=== PATIENT | male | born 1955 | race Caucasian/White ===

== ENCOUNTER 2016-11-01 15:14 | Emergency (ER) | payer BC ==
[2016-11-01 15:44] VITALS: BP 139/94
--- NOTE | 2016-11-01 16:21 | EDM.PDOC ---
ED HPI GENERAL MEDICAL PROBLEM - General Chief Complaint: Chest Pain Stated Complaint: ELEVATED BLOOD PRESSURE Time Seen by Provider: 11/01/16 15:22 Source of Information: Reports: Patient History Limitations: Reports: No Limitations - History of Present Illness INITIAL COMMENTS - FREE TEXT/NARRATIVE: Pateint C/O of midsternal cp with activity for the last 3 days Onset: Gradual Duration: Day(s): Location: Reports: Chest Quality: Reports: Pressure Severity: Moderate Worsens with: Reports: Movement Chest Pain Score (Numeric/FACES): 2 - Related Data Allergies Allergy/AdvReac Type Severity Reaction Status Date / Time No Known Allergies Allergy Verified 11/01/16 15:57 Home Meds: Home Meds Clopidogrel Bisulfate [Clopidogrel] 75 mg PO DAILY 11/13/13 [History] Cyanocobalamin (Vitamin B-12) [B-12] 1,000 mcg PO DAILY 11/13/13 [History] Cyanocobalamin (Vitamin B12) [Vitamin B12] 1,000 mcg IJ Q30D 11/13/13 [History] Losartan [Cozaar] 50 mg PO DAILY 11/13/13 [History] Medication For Ulcerative Colitis 3 tab PO BID 11/13/13 [History] Multivitamin [Daily Vitamin] 1 each PO DAILY 11/13/13 [History] Nitroglycerin [Nitrostat] 0.4 mg SL DAILY PRN 11/13/13 [History] Simvastatin [Simvastatin] 10 mg PO DAILY 11/13/13 [History] Zolpidem [Ambien] 10 mg PO BEDTIME PRN 11/13/13 [History] amLODIPine Besylate [Amlodipine Besylate] 10 mg PO DAILY 11/13/13 [History] Omeprazole 20 mg PO DAILY 10/17/15 [History] Aspirin [Halfprin] 81 mg PO DAILY 10/22/15 [History] Chromium Picolinate 200 mcg PO DAILY 10/22/15 [History] Folic Acid 1 mg PO DAILY 10/22/15 [History] Lisinopril [Lisinopril] 10 mg PO DAILY 10/22/15 [History] Zinc 50 mg PO DAILY 10/22/15 [History] Past Medical History Cardiovascular History: Reports: Blood Clots/VTE/DVT, High Cholesterol, Hypertension, Stents Gastrointestinal History: Reports: GERD Oncologic (Cancer) History: Reports: Prostate - Past Surgical History Cardiovascular Surgical History: Reports: Other (See Below) Other Cardiovascular Surgeries/Procedures: 2 stents GI Surgical History: Reports: Appendectomy, Bariatric Procedure, Cholecystectomy Social & Family History - Tobacco Use Smoking Status *Q: Never Smoker - Caffeine Use Caffeine Use: Reports: None - Recreational Drug Use Recreational Drug Use: No - Living Situation & Occupation Living situation: Reports: Single ED ROS GENERAL - Review of Systems Review Of Systems: ROS reveals no pertinent complaints other than HPI. ED EXAM, GENERAL - Physical Exam Exam: See Below Free Text/Narrative:: healthy appearing 60 yo male, skin W&D BBS clear, heart tones normal. Exam Limited By: Altered Mental Status General Appearance: Alert, WD/WN Nose: Normal Inspection Throat/Mouth: Normal Inspection Head: Atraumatic Neck: Normal Inspection Respiratory/Chest: No Respiratory Distress, Lungs Clear, Normal Breath Sounds Cardiovascular: Normal Peripheral Pulses, Regular Rate, Rhythm, No Edema (Male) Exam: No Hernia Back Exam: Normal Inspection Extremities: Normal Inspection Neurological: Alert, Oriented Psychiatric: Normal Affect Skin Exam: Warm, Dry, Intact Course - Vital Signs Last Recorded V/S: Last Vital Signs Temp 99.2 F 11/01/16 15:33 Pulse 65 11/01/16 15:43 Resp 17 11/01/16 15:43 BP 139/94 H 11/01/16 15:43 Pulse Ox 95 11/01/16 15:43 - Orders/Labs/Meds Orders: Active Orders 24 hr Category Date Time Status Chest 2V [CR] Stat Exams 11/01/16 15:42 Taken Labs: Laboratory Tests 11/01/16 11/01/16 11/01/16 Range/Units 15:33 15:33 15:33 WBC 9.2 (5.0-10.0) 10^3/uL RBC 4.14 L (4.50-6.00) 10^6/uL Hgb 13.4 L (14.0-18.0) g/dL Hct 42.0 (40.0-54.0) % MCV 101.4 H (82.0-94.0) fL MCH 32.4 H (27.0-32.0) pg MCHC 31.9 L (33.0-38.0) g/dL RDW Coeff of Carole 13.3 (11.0-15.0) % Plt Count 246 (150-400) 10^3/uL Neut % (Auto) 60.4 (35-85) % Lymph % (Auto) 27.3 (10-55) % [place] % (Auto) 10.9 (0-16) % Eos % (Auto) 1.1 (0-5) % Baso % (Auto) 0.3 (0-3) % Neut # (Auto) 5.57 (1.80-7.00) 10^3/uL Lymph # (Auto) 2.52 (1.00-4.80) 10^3/uL [place] # (Auto) 1.01 H (0.00-0.80) 10^3/uL Eos # (Auto) 0.10 (0.00-0.45) 10^3/uL Baso # (Auto) 0.03 10^3/uL PT 11.5 (9.7-12.3) SEC INR 1.06 (0.92-1.18) APTT 26.6 (24.5-30.9) SEC Sodium 139 (136-145) mEq/L Potassium 4.7 (3.5-5.0) mEq/L Chloride 104 (98-106) mEq/L Carbon Dioxide 28 (21-32) mmol/L BUN 23 H (7-18) mg/dL Creatinine 1.6 H (0.7-1.3) mg/dL Est Cr Clr Drug Dosing 48.48 mL/min Estimated GFR (MDRD) 44 L (>=60) mL/min Glucose 104 H (75-99) mg/dL Calcium 8.7 (8.4-10.1) mg/dL Lactate Dehydrogenase 209 H (100-190) U/L Creatine Kinase 297 H (35-232) U/L Troponin I 0.019 (0.00-0.06) ng/mL Departure - Departure Time of Disposition: 16:19 (Will set up for cardiac stress test.) Disposition: Home, Self-Care 01 Condition: Good Clinical Impression: Stable angina Instructions: Angina Pectoris, [id number] Forms: ED Department Discharge Additional Instructions: Follow up with your regular doctor and your spiral gear generator for cardiac stress test. - My Orders Last 24 Hours: My Active Orders 11/01/16 15:42 Chest 2V [CR] Stat - Assessment/Plan Last 24 Hours: My Active Orders 11/01/16 15:42 Chest 2V [CR] Stat
== END 2016-11-01 16:23 | disposition home or self-care (01) ==
LOC: CC.ED 15:14
DX: I20.9 Angina pectoris, unspecified (principal); K21.9 Gastro-esophageal reflux disease without esophagitis; E78.00 Pure hypercholesterolemia, unspecified; I10 Essential (primary) hypertension; Z98.84 Bariatric surgery status; Z79.899 Other long term (current) drug therapy; Z79.82 Long term (current) use of aspirin; Z90.49 Acquired absence of other specified parts of digestive tract; Z86.718 Personal history of other venous thrombosis and embolism
CPT/HCPCS: 36415; 71020; 80048; 82550; 83615; 84484; 85025; 85610; 85730; 93005; 99285

== ENCOUNTER 2021-11-28 06:33 | Emergency (ER) | payer MEDICARE, BC ==
[2021-11-28 06:36] VITALS: BP 168/104; PULSE 60
[2021-11-28] MEDS: Ketorolac 30 MG/ML SDV IM ONE (07:14)
== END 2021-11-28 07:45 | disposition home or self-care (01) ==
LOC: CC.ED 06:33
DX: M54.16 Radiculopathy, lumbar region (principal); K21.9 Gastro-esophageal reflux disease without esophagitis; E78.00 Pure hypercholesterolemia, unspecified; I10 Essential (primary) hypertension; I25.2 Old myocardial infarction; Z95.5 Presence of coronary angioplasty implant and graft; Z79.02 Long term (current) use of antithrombotics/antiplatelets; Z79.82 Long term (current) use of aspirin; Z79.899 Other long term (current) drug therapy
CPT/HCPCS: 96372; 99283; J1885

== ENCOUNTER 2021-11-29 10:29 | Emergency (ER) | payer MEDICARE, BC ==
[2021-11-29] MEDS: HYDROmorphone 1 MG/ML Syringe SUBCUT ONE (11:33)
[2021-11-29 12:00] LABS: CHLORIDE,CL 100 mEq/L (98-106); ESTIMATED GFR 61 mL/min (>=60); SODIUM,NA 138 mEq/L (136-145)
[2021-11-29 12:42] VITALS: BP 154/93; PULSE 66
[2021-11-29] MEDS: Take Home: Acetaminophen/oxyCODONE 325-5 MG, 2 Tab Pack PO ONE (13:14)
== END 2021-11-29 13:39 | disposition home or self-care (01) ==
LOC: CC.ED 10:29
DX: M54.16 Radiculopathy, lumbar region (principal); E78.00 Pure hypercholesterolemia, unspecified; I10 Essential (primary) hypertension; I25.2 Old myocardial infarction; K21.9 Gastro-esophageal reflux disease without esophagitis; Z95.5 Presence of coronary angioplasty implant and graft; Z79.02 Long term (current) use of antithrombotics/antiplatelets; Z79.82 Long term (current) use of aspirin; Z79.899 Other long term (current) drug therapy
CPT/HCPCS: 36415; 80053; 81001; 85025; 86140; 96372; 99283; 99284; A9270-GY; J1170

== ENCOUNTER 2023-03-03 09:21 | Emergency (ER) | payer MEDICARE, BC ==
[2023-03-03 09:46] LABS: BASOPHILS ABSOLUTE AUTO 0.03 10^3/uL (0.00-0.50); BASOPHILS PERCENT AUTO 0.4 % (0-1); EOSINOPHILS PERCENT AUTO 1.2 % (0-6); HEMATOCRIT 47.6 % (42.0-52.0); IMMATURE GRAN ABSOLUTE AUTO 0.03 10^3/uL (0.00-0.49); IMMATURE GRAN PERCENT AUTO 0.4 % (0.0-4.9); LYMPHOCYTES ABSOLUTE AUTO 1.71 10^3/uL (0.60-5.00); LYMPHOCYTES PERCENT AUTO 20.8 % (24-44); MEAN CORPUSCULAR HEMOGLOBIN 36.9 pg (27.0-32.0); MEAN CORPUSCULAR HGB CONC 33.6 g/dL (32.0-36.0); MEAN CORPUSCULAR VOLUME 109.7 fL (83.0-97.0); MONOCYTES ABSOLUTE AUTO 1.18 10^3/uL (0.00-1.50); MONOCYTES PERCENT AUTO 14.4 % (0-10); NEUTROPHILS ABSOLUTE AUTO 5.17 x10^3/uL (1.80-8.00); NEUTROPHILS PERCENT AUTO 62.8 % (41-71); PLATELET COUNT,PLT 181 10^3/uL (150-400); RED BLOOD CELL COUNT 4.34 x10^6/uL (4.50-6.00); WHITE BLOOD CELL COUNT,WBC 8.2 10^3/uL (4.0-11.0)
[2023-03-03 10:06] LABS: ALBUMIN 3.8 g/dL (3.4-5.0); BILIRUBIN TOTAL 0.6 mg/dL (0.0-1.0); C-REACTIVE PROTEIN 1.51 mg/dL (<=0.30); CALCIUM 9.4 mg/dL (8.4-10.1); CREATININE 1.7 mg/dL (0.7-1.3); EST CRCL DRUG DOSING (CG) 41.59 mL/min; MAGNESIUM 2.1 mg/dL (1.8-2.4); POTASSIUM,K 3.7 mEq/L (3.5-5.0); PROTEIN TOTAL,TP 7.2 g/dL (6.4-8.2)
[2023-03-03 10:17] VITALS: BP 125/75; PULSE 85
== END 2023-03-03 12:10 | disposition home or self-care (01) ==
LOC: CC.ED 09:21
DX: R42 Dizziness and giddiness (principal); I49.8 Other specified cardiac arrhythmias; B20 Human immunodeficiency virus [HIV] disease; E78.00 Pure hypercholesterolemia, unspecified; I10 Essential (primary) hypertension; I25.2 Old myocardial infarction; Z95.5 Presence of coronary angioplasty implant and graft; Z79.899 Other long term (current) drug therapy
CPT/HCPCS: 36415; 71045; 80053; 83735; 83880; 84484; 85025; 85379; 86140; 93005; 93010; 99284

== ENCOUNTER 2024-03-31 14:51 | Observation (INO) | payer MEDICARE, BC ==
[2024-03-31 15:29] LABS: BASOPHILS ABSOLUTE AUTO 0.04 10^3/uL (0.00-0.50); BASOPHILS PERCENT AUTO 0.3 % (0-1); EOSINOPHILS ABSOLUTE AUTO 0.06 10^3/uL (0.00-1.50); EOSINOPHILS PERCENT AUTO 0.5 % (0-6); HEMATOCRIT 35.4 % (42.0-52.0); HEMOGLOBIN 11.4 g/dL (14.0-18.0); IMMATURE GRAN ABSOLUTE AUTO 0.09 10^3/uL (0.00-0.49); IMMATURE GRAN PERCENT AUTO 0.8 % (0.0-4.9); LYMPHOCYTES ABSOLUTE AUTO 1.53 10^3/uL (0.60-5.00); LYMPHOCYTES PERCENT AUTO 13.4 % (24-44); MEAN CORPUSCULAR HGB CONC 32.2 g/dL (32.0-36.0); MEAN CORPUSCULAR VOLUME 105.7 fL (83.0-97.0); MONOCYTES PERCENT AUTO 8.7 % (0-10); NEUTROPHILS ABSOLUTE AUTO 8.71 x10^3/uL (1.80-8.00); NEUTROPHILS PERCENT AUTO 76.3 % (41-71); PLATELET COUNT,PLT 356 10^3/uL (150-400); RED BLOOD CELL COUNT 3.35 x10^6/uL (4.50-6.00); WHITE BLOOD CELL COUNT,WBC 11.4 10^3/uL (4.0-11.0)
[2024-03-31] MEDS: Ondansetron 4 MG Tab.DIS PO ONE (15:30)
[2024-03-31 15:31] LABS: APPEARANCE,URINE CLEAR (CLEAR); BILIRUBIN,URINE NEGATIVE (NEGATIVE); COLOR,URINE YELLOW (YELLOW); GLUCOSE,URINE 500 mg/dL (NEGATIVE); KETONES,URINE NEGATIVE (NEGATIVE); LEUKOCYTE ESTERASE,URINE NEGATIVE (NEGATIVE); NITRITE,URINE NEGATIVE (NEGATIVE); PH,URINE 5.5 (4.5-8.0); PROTEIN,URINE NEGATIVE (NEGATIVE); UROBILINOGEN,URINE 0.2 EU/dL (0.2-1.0)
[2024-03-31 15:36] LABS: OCCULT BLOOD,URINE NEGATIVE (NEGATIVE)
[2024-03-31 15:42] LABS: BILIRUBIN TOTAL 0.4 mg/dL (0.0-1.0); C-REACTIVE PROTEIN 0.82 mg/dL (<=0.50); CALCIUM 9.4 mg/dL (8.4-10.1); CREATININE 2.4 mg/dL (0.7-1.3); EST CRCL DRUG DOSING (CG) 29.05 mL/min; POTASSIUM,K 5.8 mEq/L (3.5-5.0); PROTEIN TOTAL,TP 7.3 g/dL (6.4-8.2)
[2024-03-31] MEDS ORDERED: Nitroglycerin 0.4 MG Tab.SL SL PRN (16:27)
[2024-03-31] MEDS ORDERED: Ondansetron 4 MG/2 ML SDV IV PRN (16:27)
[2024-03-31] MEDS ORDERED: Ondansetron 4 MG Tab.DIS PO PRN (16:27)
[2024-03-31] MEDS ORDERED: Sodium Chloride 0.9% 10 ML Syringe FLUSH PRN (16:27)
[2024-03-31] MEDS: Sodium Chloride 0.9% 1,000 ML IV ONE (16:32)
[2024-03-31] MEDS: Acetaminophen 325 MG Tab PO PRN (17:18)
[2024-03-31] MEDS: cefTRIAXone 1 GM Vial IVPUSH SCH (17:18)
[2024-03-31] MEDS: Sodium Chloride 0.9% 1,000 ML IV SCH (17:41)
[2024-03-31] MEDS: Zolpidem 5 MG Tab PO SCH (19:33)
[2024-03-31] MEDS: Metoprolol Succinate 25 MG Tab.ER PO SCH (19:33)
[2024-03-31] MEDS: Apixaban 5 MG Tab PO SCH (19:33)
[2024-03-31] MEDS: sulfaSALAzine 500 MG Tab PO SCH (19:33)
[2024-03-31] MEDS: Lactobacillus Rhamnosus GG (Probiotic) Cap PO SCH (19:33)
[2024-04-01 07:25] VITALS: BP 139/79; PULSE 62
[2024-04-01] MEDS: Isosorbide Mononitrate 30 MG Tab.ER PO SCH (07:29)
[2024-04-01] MEDS: amLODIPine 10 MG Tab PO SCH (07:29)
[2024-04-01] MEDS: Magnesium Oxide 400 MG Tab PO SCH (07:29)
[2024-04-01] MEDS: Furosemide 20 MG Tab PO SCH (07:30)
[2024-04-01] MEDS: Clopidogrel 75 MG Tab PO SCH (07:30)
[2024-04-01] MEDS: Rosuvastatin 10 MG Tab PO SCH (07:30)
[2024-04-01] MEDS: Aspirin 81 MG Tab.EC PO SCH (07:30)
[2024-04-01] MEDS: Amiodarone 200 MG Tab PO SCH (07:30)
[2024-04-01 07:34] LABS: ALBUMIN 3.2 g/dL (3.4-5.0); BILIRUBIN TOTAL 0.3 mg/dL (0.0-1.0); C-REACTIVE PROTEIN 0.59 mg/dL (<=0.50); CALCIUM 8.6 mg/dL (8.4-10.1); CREATININE 1.9 mg/dL (0.7-1.3); EST CRCL DRUG DOSING (CG) 36.69 mL/min; POTASSIUM,K 5.1 mEq/L (3.5-5.0); PROTEIN TOTAL,TP 6.2 g/dL (6.4-8.2)
[2024-04-01 07:37] LABS: BASOPHILS ABSOLUTE AUTO 0.04 10^3/uL (0.00-0.50); BASOPHILS PERCENT AUTO 0.5 % (0-1); EOSINOPHILS PERCENT AUTO 2.5 % (0-6); HEMATOCRIT 32.9 % (42.0-52.0); HEMOGLOBIN 10.4 g/dL (14.0-18.0); IMMATURE GRAN ABSOLUTE AUTO 0.07 10^3/uL (0.00-0.49); IMMATURE GRAN PERCENT AUTO 0.9 % (0.0-4.9); LYMPHOCYTES ABSOLUTE AUTO 1.88 10^3/uL (0.60-5.00); LYMPHOCYTES PERCENT AUTO 23.9 % (24-44); MEAN CORPUSCULAR HEMOGLOBIN 34.1 pg (27.0-32.0); MEAN CORPUSCULAR HGB CONC 31.6 g/dL (32.0-36.0); MEAN CORPUSCULAR VOLUME 107.9 fL (83.0-97.0); MONOCYTES ABSOLUTE AUTO 0.72 10^3/uL (0.00-1.50); MONOCYTES PERCENT AUTO 9.2 % (0-10); NEUTROPHILS ABSOLUTE AUTO 4.95 x10^3/uL (1.80-8.00); PLATELET COUNT,PLT 327 10^3/uL (150-400); RED BLOOD CELL COUNT 3.05 x10^6/uL (4.50-6.00); WHITE BLOOD CELL COUNT,WBC 7.9 10^3/uL (4.0-11.0)
[2024-04-01] MEDS ORDERED: Non-Formulary Medication 1 Each (Ubidecarenone [Co Q-10] 100 MG Capsule) PO SCH (08:00)
[2024-04-01] MEDS ORDERED: DAPAGLIFLOZIN PROPANEDIOL 5 MG PO SCH (08:00)
[2024-04-01] MEDS: Take Home: Ondansetron 4 MG Tab.DIS, 2 Tab Pack PO ONE (10:58)
== END 2024-04-01 11:15 | disposition home or self-care (01) ==
LOC: CC.ED 14:51 → CC.MS 15:55 → CC.ED 15:55 → UNDOADMOB 15:55 → CC.MS 16:12 → UNDODISOB 04-01 11:15
PROVIDERS: ADMIT Physician Assistant Medical; ATTEND Physician Assistant Medical
DX: N17.9 Acute kidney failure, unspecified (principal); E87.5 Hyperkalemia; R11.0 Nausea; Z79.899 Other long term (current) drug therapy; Z79.82 Long term (current) use of aspirin; Z79.01 Long term (current) use of anticoagulants
CPT/HCPCS: 36415; 80053; 81003; 85025; 86140; 99223; 99239; 99284; A9270-GY; J0696; J7030

== ENCOUNTER 2024-04-10 18:10 | Emergency (ER) | payer MEDICARE, BC ==
[2024-04-10 18:58] LABS: BASOPHILS ABSOLUTE AUTO 0.07 10^3/uL (0.00-0.50); BASOPHILS PERCENT AUTO 0.8 % (0-1); EOSINOPHILS ABSOLUTE AUTO 0.21 10^3/uL (0.00-1.50); EOSINOPHILS PERCENT AUTO 2.3 % (0-6); HEMATOCRIT 33.8 % (42.0-52.0); HEMOGLOBIN 10.7 g/dL (14.0-18.0); IMMATURE GRAN ABSOLUTE AUTO 0.09 10^3/uL (0.00-0.49); LYMPHOCYTES ABSOLUTE AUTO 2.32 10^3/uL (0.60-5.00); LYMPHOCYTES PERCENT AUTO 25.8 % (24-44); MEAN CORPUSCULAR HEMOGLOBIN 33.4 pg (27.0-32.0); MEAN CORPUSCULAR HGB CONC 31.7 g/dL (32.0-36.0); MEAN CORPUSCULAR VOLUME 105.6 fL (83.0-97.0); MONOCYTES ABSOLUTE AUTO 1.11 10^3/uL (0.00-1.50); MONOCYTES PERCENT AUTO 12.4 % (0-10); NEUTROPHILS ABSOLUTE AUTO 5.18 x10^3/uL (1.80-8.00); NEUTROPHILS PERCENT AUTO 57.7 % (41-71); PLATELET COUNT,PLT 270 10^3/uL (150-400)
[2024-04-10 18:59] VITALS: BP 146/82; PULSE 75
[2024-04-10 19:15] LABS: ALANINE AMINOTRANSFERASE,ALT 29 U/L (12-78); ALBUMIN 3.7 g/dL (3.4-5.0); ALKALINE PHOSPHATASE 105 U/L (46-116); ASPARTATE AMNIOTRANSFERASE,AST 26 U/L (15-37); BILIRUBIN TOTAL 0.3 mg/dL (0.0-1.0); BLOOD UREA NITROGEN,BUN 39 mg/dL (7-18); C-REACTIVE PROTEIN < 0.50 mg/dL (<=0.50); CARBON DIOXIDE,CO2 31 mmol/L (21-32); CHLORIDE,CL 100 mEq/L (98-106); EST CRCL DRUG DOSING (CG) 34.86 mL/min; ESTIMATED GFR 35 mL/min (>=60); GLUCOSE RANDOM 113 mg/dL (75-99); POTASSIUM,K 4.8 mEq/L (3.5-5.0); PRO B-TYPE NATRIUR PEPT,BNPPRO 206 pg/mL (0-1000); SODIUM,NA 138 mEq/L (136-145)
== END 2024-04-10 20:00 | disposition home or self-care (01) ==
LOC: CC.ED 18:10 → SUPCPDRO 18:10 → CC.ED 20:00
DX: R60.0 Localized edema (principal); K21.9 Gastro-esophageal reflux disease without esophagitis; E66.9 Obesity, unspecified; Z96.659 Presence of unspecified artificial knee joint; Z79.82 Long term (current) use of aspirin; Z79.899 Other long term (current) drug therapy; Z68.38 Body mass index [BMI] 38.0-38.9, adult
CPT/HCPCS: 36415; 80053; 83880; 85025; 86140; 99284

== ENCOUNTER 2024-06-09 14:21 | Emergency (ER) | payer MEDICARE, BC ==
[2024-06-09 14:25] VITALS: BP 136/73; PULSE 58
[2024-06-09] MEDS: Take Home: Amoxicillin/Clavulanate K 875-125 MG Tab, 2 Tab Pack PO ONE (14:38)
== END 2024-06-09 14:57 | disposition home or self-care (01) ==
LOC: CC.ED 14:21
DX: J20.9 Acute bronchitis, unspecified (principal); J01.00 Acute maxillary sinusitis, unspecified; Z79.02 Long term (current) use of antithrombotics/antiplatelets; Z79.82 Long term (current) use of aspirin; Z79.899 Other long term (current) drug therapy; Z79.01 Long term (current) use of anticoagulants
CPT/HCPCS: 99283; A9270-GY